=== PATIENT | male | born 1960 | race Caucasian/White ===

== ENCOUNTER → 2018-01-22 | Outpatient (CLI) | payer OTHER ==
[~2018-01-22] MED LIST: ASPIR 8181 MG PO; ATORVASTATIN CA40 MG PO; BRILINTA90 MG PO; CARVEDILOL3.125 MG PO; CELEXA20 MG PO; COREG6.25 MG PO; LEVEMIR SUBQ; LEVOTHYROXIN0.075 MG PO; LISINOPRIL5 MG PO; METFORMIN HCL500 MG PO; NITROGLYCERIN0.4 MG SUBLING; NOVOLOG100 UNIT/1 SUBQ; OMEPRAZOLE 20 M20 M1 PO; TRICOR145 MG PO; TYLENOL325 MG PO
[2018-01-22 09:41] LABS: ALBUMIN 3.8 g/dL (3.4-5.0); ALKALINE PHOSPHATASE 67 U/L (46-116); ANION GAP 8 mmol/L (7-16); BUN 14 mg/dL (7-18); CALCIUM 8.6 mg/dL (8.5-10.1); CHLORIDE 103 mmol/L (98-107); CHOLESTEROL 184 mg/dL (<200); CO2 24 mmol/L (21-32); CREATININE 0.8 mg/dL (0.6-1.3); GLUCOSE 170 mg/dL (70-99); HDL CHOLESTEROL 42 mg/dL (>40); LDL CHOLESTEROL 115 mg/dL (<100); POTASSIUM 4.3 mmol/L (3.5-5.1); SGOT 18 U/L (15-37); SGPT 35 U/L (30-65); SODIUM 135 mmol/L (136-145); TC:HDL 4.4 Ratio (Not establshd); TOTAL BILIRUBIN 0.4 mg/dL (<0.1-1.0); TOTAL PROTEIN 7.5 g/dL (6.4-8.2); TRIGLYCERIDE 135 mg/dL (<150); VLDL 27 mg/dL (<40)
[2018-01-22 09:50] LABS: SERUM ASSESSMENT Clear
[2018-01-23 02:05] LABS: GLYCOHEMOGLOBIN (HGB A1C) 10.3 % (4.8-5.6)
== END ==
LOC: M.LAB 08:22
PROVIDERS: Family Medicine
DX: E11.9 Type 2 diabetes mellitus without complications (principal)

== ENCOUNTER 2018-07-07 21:02 | Inpatient (IN) | payer OTHER ==
[~2018-07-07] VITALS: Ht 167.6 cm; Wt 108.9 kg
[~2018-07-07 21:02] MED LIST changes: -LEVOTHYROXIN0.075 MG PO; +SYNTHROID75 MCG PO
[2018-07-07 21:05] VITALS: BP 164/78
[2018-07-07 21:27] LABS: ABSOLUTE BASOPHILS 0.1 thou/uL (0.0-0.2); ABSOLUTE EOSINOPHILS 0.3 thou/uL (0.0-0.7); ABSOLUTE LYMPHOCYTES 3.5 thou/uL (0.8-5.3); ABSOLUTE MONOCYTES 0.6 thou/uL (0.0-1.2); ABSOLUTE NEUTROPHILS 3.5 thou/uL (1.6-8.1); EOSINOPHILS 3.3 %; HEMOGLOBIN 12.5 gm/dL (14.0-18.0); LYMPHOCYTES 44.2 %; MCH 29.3 pg (26.0-34.0); MCHC 34.7 g/dL (28.0-37.0); MCV 84.6 fL (80.0-100.0); MONOCYTES 7.7 %; MPV 8.7 fl. (7.2-11.1); NUCLEATED RBCS 0 /100WBC; PLATELET COUNT* 234 thou/uL (150-400); POLYS 43.8 %; RBC 4.25 mil/uL (4.50-6.00)
[2018-07-07 21:36] LABS: ANION GAP 8 mmol/L (7-16); BUN 16 mg/dL (7-18); CALCIUM 9.2 mg/dL (8.5-10.1); CHLORIDE 103 mmol/L (98-107); CO2 28 mmol/L (21-32); CREATININE 1.3 mg/dL (0.6-1.3); GLUCOSE 319 mg/dL (70-99); POTASSIUM 4.5 mmol/L (3.5-5.1); SODIUM 139 mmol/L (136-145)
[2018-07-07 21:46] LABS: ALBUMIN 3.6 g/dL (3.4-5.0); ALKALINE PHOSPHATASE 76 U/L (46-116); LIPASE 122 U/L (73-393); MAGNESIUM 1.5 mg/dL (1.8-2.4); NT-PRO BRAIN NAT PEPTIDE 16 pg/mL (<300); SGOT 32 U/L (15-37); SGPT 55 U/L (30-65); TOTAL BILIRUBIN 0.3 mg/dL (<0.1-1.0); TOTAL PROTEIN 7.3 g/dL (6.4-8.2); TROPONIN-I LEVEL <0.06 ng/mL (<0.06)
[2018-07-08] VITALS (14 sets, daily range): BP systolic 102–147; BP diastolic 48–74
--- NOTE | 2018-07-08 11:15 | EKG ---
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
--- NOTE | 2018-07-08 11:15 | EKG ---
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
--- NOTE | 2018-07-08 11:22 | EKG ---
[place] [address] ELECTROCARDIOGRAM REPORT Name: CHERELLE DUQUE Room: [place] [address] ADM IN .R.#: [id number] Admission: 07/07/18 Attend Phys: Raquel Peterson Discharge: Date of : 60 Report #: [id number] THIS REPORT FOR: //name// [facility] Test Date: 2018-07-08 Test Time: 11:06:32 Pat Name: CHERELLE DUQUE Department: Room: [place] [address] Gender: M Test Lead: NEIL : 1960 Requested By: Mio Younger Order Number: [id number] Dolores MD: Mio Younger Measurements Intervals [place] Rate: 69 P: 34 RI: 165 QRS: 12 QRSD: 96 T: 37 QT: 377 QTc: 404 Interpretive Statements Sinus rhythm Electronically Signed On 07-08-2018 11:21:58 CDT by Mio Younger [email or web address] <ELECTRONICALLY SIGNED> By: Mio Younger MD, [facility] 07/08/18 1121 1106 1106 Mio Younger MD, FACC /EPI
--- NOTE | 2018-07-08 15:49 | CARD ---
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 Procedure Narrative The patient was brought electively to the Cardiac Catheterization Laboratory and was prepped and draped in a sterile manner. The right femoral was infiltrated with 1% Lidocaine subcutaneous anesthesia. A 6fr Ultimum Sheath sheath was inserted into the RFA. Coronary angiography was performed using coronary diagnostic catheters. The right coronary system was accessed and visualized with a JR4 catheter. The left coronary system was accessed and visualized with a JL4 catheter. The left ventricle was accessed and visualized with a Angled PIG catheter. Left ventricular/Aortic Valve gradient assessed via catheter pullback. [place] [address] CARDIAC CATH REPORT Name: CHELLEOROWEY AMY Room: [address] IN [facility]#: [id number] Admission: 07/07/18 Attend Phys: Raquel Peterson Discharge: Date of : 60 Report #: [id number] projection. Pre-demployment femoral angiogram was performed . Closure device was deployed with a 6 Fr Angioseal STS 6Fr. The patient tolerated the procedure well and there were no complications associated with the procedure. There was no hematoma. Previous catheterization was performed from the right radial artery. But because of tortuosity of the innominate artery, stenting had to be performed from the femoral artery. Intraoperative Conscious Sedation Fentanyl 25 mcg Dose: 7.4 mGy Contrast Type and Amount: Visipaque 210 ml Coronary Angiography The patient's coronary anatomy is co- dominant. Diagnostic Cath Left Main 0% stenosis LAD proximal stent had a 30% stenosis. Distal lad had narrow lumen and noted to have a 60% and more apical 80% stenosis Diagonal 2 60% mid stenosis Circumflex 0% stenosis Right Coronary Small diameter vessel noted to have extended length of stents that started in the ostium of the rca an extended beyond the RV branch. Noted to have a 90% ostial restenosis and a distal 50% restenosis Ramus Vessel noted to trifurcate. A small branch of the ramus had an ostial 90% stenosis Left Ventriculography The left ventricular ejection fraction is estimated to be 60-65%. Left ventricular wall motion abnormalities are not present. There is no mitral insufficiency. Hemodynamics The aortic pressure is 115/55 mmHg with a mean of 78 mmHg. The left ventricular pressure is 118/10 mmHg with a mean of mmHg. The left ventricular end diastolic pressure is 18 mmHg. There was no gradient across the aortic valve upon pullback. Pullback from the left ventricle to the aorta revealed no gradient across the aortic valve. PCI Technique Lesion Anticoagulation was achieved with Heparin. bolus of iv aggrastat given Percutaneous coronary [place] [address] CARDIAC CATH REPORT Name: CHERELLE DUQUE Room: [address] IN [facility]#: [id number] Admission: 07/07/18 Attend Phys: Raquel Peterson Discharge: Date of : 60 Report #: [id number] proximal right coronary artery. The lesion stenosis prior to intervention was 90% with GIL 3 flow. A 6FR SH 100C Guide Catheter was used to engage the Right ostium. A IG: BMW 190cm Interventional Guidewire was used to cross the lesion. BALLOON DILATION A Balloon catheter Mini Trek RX 2.0 X 8 was inserted and inflated up to 8.00atm for 10seconds. Repeat angiography revealed the following post-dilatation results: 50% stenosis. Additional Inflation: 12.00atm for 20seconds. STENT DEPLOYMENT A drug-eluting stent Jesus RX Stent 2.0X15mm was inserted and inflated up to 12.00atm for 13seconds. Repeat angiography revealed the following post-stent deployment results: 0% stenosis. Additional Inflation: 14.00atm for 14seconds. Final angiography reveals 0 % stenosis with GIL 3 flow. Conclusion 1. no restenosis of stent in proximal lad 2. diffuse small vessel disease with 80% stenosis of apical lad and 80% stenosis of small branch of the ramus artery. 3. 90% ostial restenosis of stents in the proximal rca 4. LVEF 60% 5. successful placement of a drug eluting stent in the ostium of the rca Recommendations Cardiac Rehabilitation Referral Aggressive Medical Therapy Medications Administered Ticagrelor <ELECTRONICALLY SIGNED> By: Mio Younger MD, [facility] 07/08/18 1549 1549 1549Daviricardo Younger MD, FACC /INF
--- NOTE | 2018-07-08 16:16 | CON ---
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 The patient has a long history of diabetes and hyperlipidemia. The patient initially presented back in 01/2015 when he came to the Emergency Room complaining of intermittent chest tightness. It was not related to food. In the Emergency Room, he was noted to have evidence of ST segment elevation. I was asked to see him on an emergent basis. I performed emergent cardiac catheterization on Jayda Moreno. At that time that showed an ejection fraction 60%. There was 90% narrowing of the proximal LAD. There was a small nondominant right coronary artery appeared to be chronically occluded. I then placed a single drug-eluting stent in the LAD. He did well after that time and was discharged on carvedilol, Lipitor, and Brilinta. He continued his insulin, metformin, Synthroid, fenofibrate. At that time, his LDL was 112. His peak troponin was only 1.18. The patient then presented in 2017 with exertional chest burning. He underwent a nuclear stress test that showed an apical defect with reversibility consistent with ischemia. I actually performed a repeat cardiac catheterization in 05/2016 that showed the stent in the LAD had no restenosis. However, there was a 70% narrowing of the apical LAD. The right coronary artery had a 90% stenosis. I then placed three bare metal stents in the right coronary artery. Ejection fraction was 60%. Of note is I actually started the procedure from the right radial artery because the tortuous innominate artery making the radial approach very difficult. Stenting was performed from the right femoral artery. The patient has actually done fairly well since that time two years ago. I see the patient in the clinic about every six months. He states that he stays fairly active, but yesterday afternoon, he began to have chest pressure. It tended to come and go. He took four nitroglycerin that seemed to help somewhat. He noticed some diaphoresis, nausea. He took some antacids, did seem to help. He finally drove himself to the Emergency Room last night and was admitted. Since that time, he continues to have intermittent pressure in his chest. The pressure is not related to food. He has had no belching, bleeding, fever or cough. Denied any trauma to his chest. He denied any recent exertional dyspnea, palpitations or syncope. PAST MEDICAL HISTORY: Otherwise is significant for tonsillectomy, septal surgery for sleep apnea, hyperlipidemia, hypothyroidism, diabetes, sleep apnea. CURRENT MEDICATIONS: He ran out of [email or web address] two weeks ago. He does not take [address] [place] [address] CONSULTATION Name: CHERELLE DUQUE Room: [address] IN ..#: [id number] Admission: 07/07/18 Attend Phys: Raquel Peterson Discharge: Date of : 60 Report #: [id number]. He is also on Coreg, lisinopril, Lipitor every other day because of myalgias, metformin twice a day, Levemir insulin on a sliding scale. ALLERGIES: He has no known drug allergies. FAMILY HISTORY: His mother had stent. SOCIAL HISTORY: He is . He and his live in [place]. 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 He quit smoking years ago. No alcohol abuse. REVIEW OF SYSTEMS: He has had no history of stroke, asthma. He does have history of peptic ulcer disease with esophagitis and a hiatal hernia. He has no history of GI bleeding, no liver disease, no kidney disease, no cancer, no arthritis, no chronic skin condition. Does wear glasses. PHYSICAL EXAMINATION: GENERAL: Revealed a middle-aged male, lying in bed, appeared in no acute distress. VITAL SIGNS: He had a blood pressure of 120/60, pulse 60. He was afebrile. HEENT: He was anicteric. Conjunctivae pink. Mucous membranes appear dry. NECK: Veins did not appear distended. No carotid bruits. Neck supple. CHEST: Clear to auscultation. CARDIOVASCULAR: Regular rate and rhythm. ABDOMEN: Soft. EXTREMITIES: Had no edema. Dorsalis pedis pulse 2+ bilaterally. SKIN: Warm, dry. NEUROLOGIC: Nonfocal. LYMPHATIC: No adenopathy. MUSCULOSKELETAL: No joint effusion. RADIOLOGICAL DATA: His ECG showed sinus rhythm. There was a T-wave inversion in lead aVL, V1 and V2. His workup last night, he had a portable chest x-ray that showed normal heart size and clear lung felder. LABORATORY WORK: Last night, sodium 139, BUN 16, creatinine 1.3, glucose is 319. Liver function studies were normal. His troponin was 0.06; however, this morning is 0.16. In January, his cholesterol was 184, triglyceride 135, HDL 42, LDL 115. TSH 3.1. White blood cell count 8.0, hemoglobin 12.5. IMPRESSION AND RECOMMENDATIONS: 1. Acute coronary syndrome. Recommend repeat cardiac catheterization. 2. Diabetes. 3. Hyperlipidemia. The patient is on a statin drug. 4. [place] [address] CONSULTATION Name: CHERELLE DUQUE Room: [address]#: [id number] Admission: 07/07/18 Attend Phys: Raquel Peterson Discharge: Date of : 60 Report #: [id number] 5. History of esophagitis. 6. Sleep apnea. The patient uses BiPAP. <ELECTRONICALLY SIGNED> By: Mio Younger MD, FACC 07/08/18 1616 0843 [id number] Younger MD, FAC /nt
--- NOTE | 2018-07-08 17:52 | NUR ---
PATINET RESTING IN BED. UP AD MICHELLE IN ROOM. RIGHT GROIN SITE CLEAN/DRY/INTACT WITH NO S/S OF HEMATOMA. VITAL SIGNS STABLE AND PATINET IN NO APPARENT SIGND OF DISTRESS. HOURLY ROUNDING COMPLETED FOR PATIENT SAFETY
[2018-07-09] VITALS: BP 120/63
[2018-07-09 02:06] LABS: GLYCOHEMOGLOBIN (HGB A1C) 7.2 % (4.8-5.6)
[2018-07-09 04:00] VITALS: BP 116/56
--- NOTE | 2018-07-09 04:49 | NUR ---
ASSUMED CARE OF PT AT 1900. PT IS ALERT AND ORIENTED. VSS. PERRLA. NO COMPLAINTS OF PAIN. STEADY GAIT. UP AD MICHELLE. PT IS IN SINUS RYTHM ON THE TELEMETRY. PT IS RESTING COMFORTABLY IN BED. RESPIRATIONS ARE EVEN AND NONLABORED. WILL CONTINUE TO MONITOR PT.
[2018-07-09 04:55] LABS: HEMATOCRIT 33.7 % (42.0-52.0); HEMOGLOBIN 11.9 gm/dL (14.0-18.0); MCH 29.7 pg (26.0-34.0); MCHC 35.2 g/dL (28.0-37.0); MCV 84.3 fL (80.0-100.0); MPV 8.9 fl. (7.2-11.1); RBC 3.99 mil/uL (4.50-6.00); RDW-CV 13.1 % (10.5-14.5); WBC 6.4 thou/uL (4.0-11.0)
[2018-07-09 05:04] LABS: CALCIUM 8.8 mg/dL (8.5-10.1); POTASSIUM 4.3 mmol/L (3.5-5.1)
[2018-07-09 05:09] LABS: CHOLESTEROL 149 mg/dL (<200); HDL CHOLESTEROL 30 mg/dL (>40); LDL CHOLESTEROL 77 mg/dL (<100); TRIGLYCERIDE 212 mg/dL (<150); TROPONIN-I LEVEL 0.43 ng/mL (<0.06); VLDL 42 mg/dL (<40)
[2018-07-09 05:13] LABS: SERUM ASSESSMENT Slight Lipemia
[2018-07-09 08:00] VITALS: BP 155/72
[2018-07-09 09:06] VITALS: BP 155/72
[2018-07-09] MEDS ORDERED: BRILINTA90 MG PO (11:40)
[2018-07-09] MEDS ORDERED: ZETIA10 MG PO (11:45)
--- NOTE | 2018-07-09 14:23 | NUR ---
NOTE P.T. EVAL ORDERS RECEIVED AT 1120 THIS DATE. CHECK ON PT AT 1315 AND PT HAD BEEN DISCHARGED FROM HOSPITAL.
== END 2018-07-09 12:30 | disposition home or self-care (01) | DRG 247 ==
LOC: M.ERS 21:02 → M.TBA-ER 22:11 → M.2W 07-08 15:08
PROVIDERS: Emergency Medicine Emergency Medical Services; Internal Medicine Cardiovascular Disease; ADMIT Internal Medicine
PROC: B215YZZ Fluoroscopy of Left Heart using Other Contrast (ICD-10-PCS; principal; 2018-07-08)
PROC: B41JYZZ Fluoroscopy of Other Lower Arteries using Other Contrast (ICD-10-PCS; principal; 2018-07-08)
PROC: B211YZZ Fluoroscopy of Multiple Coronary Arteries using Other Contrast (ICD-10-PCS; principal; 2018-07-08)
PROC: 027034Z Dilation of Coronary Artery, One Artery with Drug-eluting Intraluminal Device, Percutaneous Approach (ICD-10-PCS; principal; 2018-07-08)
PROC: 4A023N7 Measurement of Cardiac Sampling and Pressure, Left Heart, Percutaneous Approach (ICD-10-PCS; principal; 2018-07-08)
DX: I21.4 Non-ST elevation (NSTEMI) myocardial infarction (principal); E11.9 Type 2 diabetes mellitus without complications; I24.9 Acute ischemic heart disease, unspecified; E03.9 Hypothyroidism, unspecified; E78.5 Hyperlipidemia, unspecified; Z68.38 Body mass index [BMI] 38.0-38.9, adult; E66.9 Obesity, unspecified; Z79.4 Long term (current) use of insulin; I25.2 Old myocardial infarction; Z87.891 Personal history of nicotine dependence; Z79.899 Other long term (current) drug therapy